=== PATIENT | female | born 1995 | race Caucasian/White ===

== ENCOUNTER 2017-07-09 13:32 | Emergency (ER) | payer SELFPAY ==
[2017-07-09 14:38] VITALS: BP 160/88
--- NOTE | 2017-07-09 14:40 | Emergency Department Report ---
Chief Complaint: Skin Rash Stated Complaint: RASH ON BODY Time Seen by Provider: 07/09/17 14:33 - HPI History of Present Illness: PT c/o rash x months. PT states she has seen several doctors at home in [place]. PT states after she noticed the rash she has had episodes of dizziness. PT states she has a hx of anemia and pre diabetes - ROS Review of Systems: + dizziness - Exam Physical Exam: morbidly obese female pt dry hyper pigmented rash to chest wall rash to abd no rash noted to back MSE screening note: Focused history and physical exam performed. Due to findings the following was ordered: labs ED Disposition for MSE Condition: Stable
[2017-07-09 16:24] LABS: Basophils % (Auto) 0.5 % (0.0-1.8); Eosinophils % (Auto) 2.5 % (0.0-4.3); Hematocrit 36.8 % (30.3-42.9); Hemoglobin 11.6 gm/dl (10.1-14.3); Mean Corpuscular HGB Conc 31 % (30-34); Mean Corpuscular Volume 75 fl (79-97); Platelet Count 259 K/mm3 (140-440); Red Blood Count 4.88 M/mm3 (3.65-5.03); Red Cell Distribution Width 17.3 % (13.2-15.2); White Blood Count 9.6 K/mm3 (4.5-11.0)
[2017-07-09 16:25] LABS: Mean Corpuscular Hemoglobin 24 pg (28-32)
[2017-07-09 16:47] LABS: Bilirubin,Urine NEG (Negative); Blood,Urine SM (Negative); Ketones,Urine NEG (Negative); Leukocyte Esterase,Urine TR (Negative); Mucus,Urine FEW /HPF; Nitrite,Urine NEG (Negative); Protein,Urine <15 mg/dL mg/dL (Negative); Urobilinogen,Urine < 2.0 mg/dL (<2.0)
--- NOTE | 2017-07-09 20:15 | Emergency Department Report ---
ED Rash HPI - HPI Chief Complaint: Skin Rash Stated Complaint: RASH ON BODY Time Seen by Provider: 07/09/17 14:33 Duration: 2 mos Location: Abdomen Suspected Cause: Unknown Rash Symptoms: Yes Itching (rash, burning sometimes), No Facial Swelling, No Tongue/Oral Swelling, No Breathing Difficulties, No Choking Sensation, No Wheezing/Dyspnea, No Peeling, No Blistering, No Fever, No Lightheaded, No Malaise Severity: moderate Other History: patient presents to emergency room reports that she has rash to her abdomen does been ongoing for 2 months. She says she is traveling from out of town and she seen dermatologists in the state that she lives and they gave her triamcinolone but she said that that is not helping. She said the rash is itchy and sometimes it mejia. Reports that it 5 out of 10 itchy and and when it mejia but no burning now. She says she was having some dizziness earlier but she is not having any dizziness at present. Denies any fever or chills denies any nausea or vomiting last menstrual period was 07/02/2017 she also reports that initial rash is still there and now she has some new one that is to her upper chest and 1 to her right abdomen. She describes all rashes itching. Denies any drainage reports daily in an dryness. Tetanus vaccine is up-to-date. Patient has a history of anemia and morbid obesity. Denies any cough, chest pain, wheezing or stridor. ED Review of Systems ROS: Stated complaint: RASH ON BODY Other details as noted in HPI Comment: All other systems reviewed and negative Constitutional: no symptoms reported ENT: denies: ear pain, throat pain, congestion Respiratory: no symptoms reported Cardiovascular: denies: chest pain, palpitations, dyspnea on exertion, edema, syncope Gastrointestinal: denies: abdominal pain, nausea, vomiting, diarrhea Musculoskeletal: denies: back pain, joint swelling, arthralgia, myalgia Skin: rash Neurological: denies: headache, weakness, numbness, paresthesias, confusion, abnormal gait, vertigo ED Past Medical Hx - Past Medical History Previous Medical History?: Yes Hx Diabetes: Yes Additional medical history: anemic,morbid obesity - Surgical History Past Surgical History?: Yes - Family History Family history: hypertension - Social History Smoking Status: Never Smoker Substance Use Type: Alcohol Other Social History: single - Medications Home Medications: Home Medications Medication Instructions Recorded Confirmed Last Taken Type Cephalexin [Keflex] 500 mg PO Q8HR #15 cap 07/09/17 Unknown Rx Fluconazole [Diflucan TAB] 200 mg PO QDAY #2 tablet 07/09/17 Unknown Rx Ketoconazole 2% [Nizoral] 15 gm TP TID #1 tube 07/09/17 Unknown Rx Rash Exam - Exam General: Vital signs noted. No distress. Alert and acting appropriately. 22-year-old morbidly obese female well-nourished well-developed in no acute distress. HEENT: No Periorbital Edema, No Conjuctival Injection, No Chemosis, No Perioral Edema, No Tongue Edema, No Uvular Edema, No Compromised Airway, No Drooling Lungs: Yes Good Air Exchange, No Wheezes, No Ronchi, No Stridor, No Cough, No Labored Respirations, No Retractions, No Use of Accessory Muscles, No Other Abnormal Lung Sounds Heart: Yes Regular Skin: Yes Erythema, Yes Other (patient with dry scaly, plaque-like areas to rt lateral mid abdomen, rt lower abdomen, rt upper chest. Borders well-demarcated with clearing to center. NTTP), No Urticarial Rash, No Maculopapular Rash, No Morbilliform rash, No Bulla(e), No Excoriations, No Weeping, No Tenderness, No Edema, No Encrustations Other: Positive: Abdomen Normal, Neurologic Normal, Musculoskeletal Normal ED Course Vital Signs 07/09/17 14:33 Temperature 98.2 F Pulse Rate 71 Respiratory 18 Rate Blood Pressure 160/88 O2 Sat by Pulse 100 Oximetry - Reevaluation(s) Reevaluation #1: 07/09/17 20:47 Stable throughout ED stay. ED Medical Decision Making - Lab Data Result diagrams: 07/09/17 16:12 Lab Results 07/09/17 07/09/17 07/09/17 Range/Units 16:00 16:12 16:12 WBC 9.6 (4.5-11.0) K/mm3 RBC 4.88 (3.65-5.03) M/mm3 Hgb 11.6 (10.1-14.3) gm/dl Hct 36.8 (30.3-42.9) % MCV 75 L (79-97) fl MCH 24 L (28-32) pg MCHC 31 (30-34) % RDW 17.3 H (13.2-15.2) % Plt Count 259 (140-440) K/mm3 Lymph % (Auto) 25.9 (13.4-35.0) % [place] % (Auto) 8.7 H (0.0-7.3) % Eos % (Auto) 2.5 (0.0-4.3) % Baso % (Auto) 0.5 (0.0-1.8) % Lymph # 2.5 (1.2-5.4) K/mm3 [place] # 0.8 (0.0-0.8) K/mm3 Eos # 0.2 (0.0-0.4) K/mm3 Baso # 0.0 (0.0-0.1) K/mm3 Seg Neutrophils % 62.4 (40.0-70.0) % Seg Neutrophils # 6.0 (1.8-7.7) K/mm3 HCG, Qual Negative (Negative) Urine Color Yellow (Yellow) Urine Turbidity Clear (Clear) Urine pH 6.0 (5.0-7.0) Ur Specific [place] 1.020 (1.003-1.030) Urine Protein <15 mg/dl (Negative) mg/dL Urine Glucose (UA) Neg (Negative) mg/dL Urine Ketones Neg (Negative) mg/dL Urine Blood Sm (Negative) Urine Nitrite Neg (Negative) Urine Bilirubin Neg (Negative) Urine Urobilinogen < 2.0 (<2.0) mg/dL Ur Leukocyte Esterase Tr (Negative) Urine WBC (Auto) 5.0 (0.0-6.0) /HPF Urine RBC (Auto) 2.0 (0.0-6.0) /HPF U Epithel Cells (Auto) 2.0 (0-13.0) /HPF Urine Mucus Few /HPF - Medical Decision Making ED Course: Presented to the emergency room with rash to right lateral mid abdomen does been ongoing for 2 months and she reports new rashes to right lower abdomen and right upper chest. She is visiting from [place] and said that she saw a academic affairs vice president in [place] and was treated with triamcinolone cream. She said this is not helping and the rash is very itchy. Physical findings for tinea corporis. I discuss diagnosis and treatment plan the patient and discussed that I'll put her on antifungal cream along with 2 days of antifungal pill and cover empirically with antibiotic. She voiced understanding. Tetanus vaccine is up-to-date. Labs: Please refer to lab section for lab results which were stable. Assess/Plan 1. Tinea corporis 2. Pruritic skin disorder Patient discharged home in stable condition with prescription for Diflucan on 2 days, ketoconazole cream and Keflex. As the patient that she needs to return to her dermatologists when she gets back to [place] or if she is not going to go back to [place] in the near future events all refer her to dermatologists in [place] for her to follow up for skin scraping. Critical care attestation.: If time is entered above; I have spent that time in minutes in the direct care of this critically ill patient, excluding procedure time. ED Disposition Clinical Impression: Tinea corporis, Pruritus of skin Disposition: DC-01 TO HOME OR SELFCARE Is pt being admited?: No Does the pt Need Aspirin: No Condition: Stable Instructions: Itchy Skin (ED), Tinea Corporis (ED) Additional Instructions: keep affected areas clean and dry . Please stop steroid cream and start using antifungal cream to rash areas Practice good hand hygiene as this rash Antifungal pills 2 days follow-up with academic affairs vice president as recommended Take antibiotic to cover empirically Prescriptions: Cephalexin [Keflex] 500 mg PO Q8HR #15 cap Fluconazole [Diflucan TAB] 200 mg PO QDAY #2 tablet Ketoconazole 2% [Nizoral] 15 gm TP TID #1 tube Referrals: BRYON MOODY MD [Staff Physician] - 2-3 Days
== END 2017-07-09 21:08 | disposition home or self-care (01) ==
LOC: ED 13:32
DX: B35.4 Tinea corporis (principal); L29.9 Pruritus, unspecified; E11.9 Type 2 diabetes mellitus without complications; D64.9 Anemia, unspecified
CPT/HCPCS: 81001; 84703; 85025; 99283

== ENCOUNTER 2018-02-18 11:32 | Emergency (ER) | payer OTHER ==
[2018-02-18 11:39] VITALS: BP 153/72
[2018-02-18 12:20] LABS: Basophils # (Auto) 0.1 K/mm3 (0.0-0.1); Basophils % (Auto) 0.7 % (0.0-1.8); Eosinophils # (Auto) 0.2 K/mm3 (0.0-0.4); Eosinophils % (Auto) 2.7 % (0.0-4.3); Hematocrit 36.5 % (30.3-42.9); Hemoglobin 11.2 gm/dl (10.1-14.3); Lymphocytes # (Auto) 1.9 K/mm3 (1.2-5.4); Lymphocytes % (Auto) 23.4 % (13.4-35.0); Mean Corpuscular HGB Conc 31 % (30-34); Mean Corpuscular Volume 74 fl (79-97); Monocytes # (Auto) 0.5 K/mm3 (0.0-0.8); Monocytes % (Auto) 5.6 % (0.0-7.3); Platelet Count 304 K/mm3 (140-440); Red Blood Count 4.97 M/mm3 (3.65-5.03); Red Cell Distribution Width 15.6 % (13.2-15.2)
[2018-02-18 12:22] LABS: Mean Corpuscular Hemoglobin 23 pg (28-32)
--- NOTE | 2018-02-18 15:38 | Emergency Department Report ---
ED Female HPI - General Chief complaint: Vaginal Bleeding Stated complaint: NO PERIOD FOR 8 MONTHS Time Seen by Provider: 02/18/18 15:10 Source: patient Mode of arrival: Ambulatory Limitations: No Limitations - History of Present Illness Initial comments: Patient is a 23-year-old female past medical history of morbid obesity who is presenting with 8 months of continuous vaginal bleeding. Patient states that her bleeding E is mostly light but is daily. Patient states is no pain is no dysuria or diarrhea nausea vomiting chest pain present. Patient states that she has not seen a riprap placer. Patient states that she last saw a physician regarding this about 9 months ago and was started on some medication which did stop her bleeding but is restarted as mentioned continuous last 8 months. - Related Data Previous Rx's Medication Instructions Recorded Last Taken Type Cephalexin [Keflex] 500 mg PO Q8HR #15 cap 07/09/17 Unknown Rx Fluconazole [Diflucan TAB] 200 mg PO QDAY #2 tablet 07/09/17 Unknown Rx Ketoconazole 2% [Nizoral] 15 gm TP TID #1 tube 07/09/17 Unknown Rx medroxyPROGESTERone ACETATE 10 mg PO DAILY #7 tablet 02/18/18 Unknown Rx [Provera] Allergies Allergy/AdvReac Type Severity Reaction Status Date / Time No Known Allergies Allergy Verified 02/18/18 11:36 ED Review of Systems ROS: Stated complaint: NO PERIOD FOR 8 MONTHS Other details as noted in HPI Comment: All other systems reviewed and negative ED Past Medical Hx - Past Medical History Hx Diabetes: Yes Additional medical history: anemic,morbid obesity - Social History Smoking Status: Current Some Day Smoker Substance Use Type: Alcohol - Medications Home Medications: Home Medications Medication Instructions Recorded Confirmed Last Taken Type Cephalexin [Keflex] 500 mg PO Q8HR #15 cap 07/09/17 Unknown Rx Fluconazole [Diflucan TAB] 200 mg PO QDAY #2 tablet 07/09/17 Unknown Rx Ketoconazole 2% [Nizoral] 15 gm TP TID #1 tube 07/09/17 Unknown Rx medroxyPROGESTERone ACETATE 10 mg PO DAILY #7 tablet 02/18/18 Unknown Rx [Provera] ED Physical Exam - General Limitations: No Limitations General appearance: alert, in no apparent distress, obese - Head Head exam: Present: atraumatic, normocephalic - Eye Eye exam: Present: normal appearance - ENT ENT exam: Present: mucous membranes moist - Neck Neck exam: Present: normal inspection - Respiratory Respiratory exam: Present: normal lung sounds bilaterally. Absent: respiratory distress - Cardiovascular Cardiovascular Exam: Present: regular rate, normal rhythm. Absent: systolic murmur, diastolic murmur, rubs, gallop - GI/Abdominal GI/Abdominal exam: Present: soft, normal bowel sounds - Extremities Exam Extremities exam: Present: normal inspection - Back Exam Back exam: Present: normal inspection - Neurological Exam Neurological exam: Present: alert, oriented X3 - Psychiatric Psychiatric exam: Present: normal affect, normal mood - Skin Skin exam: Present: warm, dry, intact, normal color. Absent: rash ED Course Vital Signs 02/18/18 11:36 Temperature 97.5 F L Pulse Rate 86 Respiratory 16 Rate Blood Pressure 153/72 O2 Sat by Pulse 98 Oximetry ED Medical Decision Making - Lab Data Result diagrams: 02/18/18 11:45 Negative test - Medical Decision Making Patient is a 23-year-old female who is presenting with vaginal bleeding. Patient is not anemic and also is not which effectively rules out any emergent condition Critical care attestation.: If time is entered above; I have spent that time in minutes in the direct care of this critically ill patient, excluding procedure time. ED Disposition Clinical Impression: DUB (dysfunctional uterine bleeding) Disposition: DC-01 TO HOME OR SELFCARE Is pt being admited?: No Does the pt Need Aspirin: No Condition: Stable Instructions: Dysfunctional Uterine Bleeding (ED) Prescriptions: medroxyPROGESTERone ACETATE [Provera] 10 mg PO DAILY #7 tablet Referrals: RADHA GRIFFITH MD [Staff Physician] - 3-5 Days
== END 2018-02-18 15:44 | disposition home or self-care (01) ==
LOC: ED 11:32
DX: N93.8 Other specified abnormal uterine and vaginal bleeding (principal); E11.9 Type 2 diabetes mellitus without complications; E66.01 Morbid (severe) obesity due to excess calories; F17.200 Nicotine dependence, unspecified, uncomplicated
CPT/HCPCS: 36415; 84703; 85025; 86850; 86900; 86901; 99283